=== PATIENT | male | born 2000 | race Two or more races ===

== ENCOUNTER 2023-05-23 08:43 | Emergency (ER) | payer MEDICAID, OTHER ==
[~2023-05-23] VITALS: Ht 177.8 cm; Wt 145.4 kg
[2023-05-23 08:57] VITALS: BP 142/86; PULSE 80; RESP 16; TEMP 98.6; O2SAT 98
[2023-05-23] MEDS ORDERED: dexamethasone sod phosphate 10mg/ml inj PO STA (10:43)
[2023-05-23] MEDS ORDERED: ketorolac trometh inj. 60 MG/2 ML VIAL IM ONE (10:45)
[2023-05-23] MEDS ORDERED: orphenadrine citrate 60mg/2ml inj. IM ONE (10:45)
[2023-05-23] MEDS ORDERED: IBUP-1984 PO (10:46)
[2023-05-23] MEDS ORDERED: PRED20TA PO (10:46)
[2023-05-23] MEDS ORDERED: CYCL-1 PO (10:46)
== END 2023-05-23 11:05 | disposition home or self-care (01) ==
LOC: ER 08:44
DX: S39.012A Strain of muscle, fascia and tendon of lower back, initial encounter (principal); Z79.899 Other long term (current) drug therapy; Z90.49 Acquired absence of other specified parts of digestive tract; X50.0XXA Overexertion from strenuous movement or load, initial encounter; Y93.43 Activity, gymnastics; Y92.318 Other athletic court as the place of occurrence of the external cause; Y99.8 Other external cause status
CPT/HCPCS: 96372; 99284; J1100; J1885; J2360